=== PATIENT | female | born 1955 | race American Indian/Alaskan Native ===

== ENCOUNTER 2016-11-27 12:51 | Outpatient (CLI) | payer BC ==
--- NOTE | 2016-11-30 07:48 | Vascular Lab Report ---
Left Lower Extremity Venous Duplex Study: Reason for Exam: Left leg pain. Comments on the Right: A limited duplex study was done of the proximal veins of the right lower extremity. All veins visualized are freely compressible without evidence of internal echogenicity. Flow is spontaneous and phasic throughout. No evidence of acute or chronic thrombus is seen in any of the vessels visualized. Comments on the Left: All veins visualized are freely compressible without evidence of internal echogenicity. Flow is spontaneous and phasic throughout. No evidence of acute or chronic thrombus is seen in any of the vessels visualized. Impression: No evidence of acute or chronic deep venous thrombosis in the left lower extremity.
== END 2016-11-27 12:52 | disposition home or self-care (01) ==
LOC: VAS 12:51
PROVIDERS: ATTEND Podiatrist Foot & Ankle Surgery
DX: M79.662 Pain in left lower leg (principal); M79.89 Other specified soft tissue disorders

== ENCOUNTER 2017-02-06 09:15 | Outpatient (CLI) | payer BC | END 2017-02-06 09:16 | disposition home or self-care (01) | LOC: MRI 09:15 | PROVIDERS: ATTEND Specialist | DX: I63.9 Cerebral infarction, unspecified (principal) | CPT/HCPCS: 70544; 70547 ==

== ENCOUNTER 2017-05-05 08:08 | Outpatient (CLI) | payer BC ==
--- NOTE | 2017-05-05 10:27 | Cat Scan Report ---
CT CHEST WITHOUT CONTRAST: HISTORY: Sarcoidosis the lung. TECHNIQUE: Helical CT with sagittal and coronal reformatted images. FINDINGS: Compared to 10/27/16. The lungs are clear. No significant interstitial or air space lung disease is identified. The typical findings of peribronchial nodularity associated with sarcoidosis is not identified on this study. No pleural effusion or pneumothorax. 4 mm calcified granuloma in the right lower lobe and small calcified right hilar lymph nodes are again noted and unchanged. The thyroid gland, tracheobronchial tree and esophagus are unremarkable. Heart size is normal. No pericardial effusion. The mediastinal vessels are grossly normal on noncontrast CT. Mild coronary artery calcifications are noted. No mediastinal adenopathy detected. The thoracic cage is intact. Mild thoracic spondylosis is noted. No fracture or suspicious bony lesion. IMPRESSION: Essentially unremarkable CT chest without contrast. No findings consistent with sarcoidosis is identified in the chest. Old, healed granulomatous disease is again noted. No change since 10/27/16.
== END 2017-05-05 08:09 | disposition home or self-care (01) ==
LOC: CT 08:08
PROVIDERS: ATTEND Specialist
DX: J84.10 Pulmonary fibrosis, unspecified (principal); I25.10 Atherosclerotic heart disease of native coronary artery without angina pectoris; M47.894 Other spondylosis, thoracic region; I10 Essential (primary) hypertension; I48.91 Unspecified atrial fibrillation; E78.00 Pure hypercholesterolemia, unspecified; J45.909 Unspecified asthma, uncomplicated
CPT/HCPCS: 71250

== ENCOUNTER 2019-09-27 10:29 | Outpatient (CLI) | payer BC ==
--- NOTE | 2019-09-27 14:59 | Mammography Report ---
DIGITAL SCREENING MAMMOGRAM WITH CAD, 09/27/2019 INDICATION: Routine screening mammography. TECHNIQUE: Digital bilateral 2D mammography was obtained in the craniocaudal and mediolateral obliq ue projections. Suboptimal positioning of the left MLO because of limited mobility of the left arm. T his examination was interpreted with the benefit of Computer-Aided Detection analysis. COMPARISON: None. FINDINGS: Breast Density: There are scattered areas of fibroglandular density. There is no evidence of dominant mass, suspicious calcifications or architectural distortion in eithe r breast. IMPRESSION: No mammographic evidence of malignancy. Follow up recommendation: Routine yearly BI-RADS Category 1: Negative. A "normal" or negative report should not discourage follow up or biopsy of a clinically significant f inding. A written summary of these findings will be mailed to the patient. The patient will be entered into a mammography reporting system which will generate a reminder letter for the patient's next appointmen t at the appropriate interval. The [employer] recommends yearly mammograms starting at age 40 and continuing as l marissa as a woman is in good health. Breast MRI is recommended for women with an approximate 20-25% or greater lifetime risk of breast cancer, including women with a strong family history of breast or ova michael cancer or who have been treated for Hodgkin's disease. Signer Name: Chidi Aviles MD Signed: 09/27/2019 2:54 PM Workstation Name: [id number]
== END 2019-09-27 10:30 | disposition home or self-care (01) ==
LOC: MAMMO 10:29
PROVIDERS: ATTEND Family Medicine
DX: Z12.31 Encounter for screening mammogram for malignant neoplasm of breast (principal)
CPT/HCPCS: 77067